=== PATIENT | male | born 1965 | race Caucasian/White ===

== ENCOUNTER 2017-05-18 21:36 | Emergency (ER) | payer MEDICARE, MEDICAID ==
[2017-05-18 21:50] VITALS: BP 152/95
[2017-05-18] MEDS ORDERED: Lidocaine 1% with EPINEPHrine 1:100,000 20 ML MDV INJECT ONE (22:03)
--- NOTE | 2017-05-18 22:37 | EDM.PDOC ---
ED HPI GENERAL MEDICAL PROBLEM - General Chief Complaint: Laceration Stated Complaint: LACERATION TO WRIST Time Seen by Provider: 05/18/17 22:00 Source of Information: Reports: Patient History Limitations: Reports: No Limitations - History of Present Illness INITIAL COMMENTS - FREE TEXT/NARRATIVE: Patient is a 42-year-old male presents ED complaining of a laceration to the right inner aspect of his wrist. Patient was working on a door lock and accidentally cut it on a piece of metal. Bleeding controlled. He has minimal pain. He has no sensorimotor deficits noted. Tetanus status is up-to-date. - Related Data Allergies Allergy/AdvReac Type Severity Reaction Status Date / Time No Known Allergies Allergy Verified 05/18/17 21:51 Home Meds: Home Meds Albuterol [Proair HFA] 2 puff INH Q4HR PRN 08/19/14 [History] Aspirin [Adult Low Dose Aspirin EC] 81 mg PO DAILY 08/19/14 [History] Divalproex Sodium [Depakote ER] 2 tab PO 0900 08/19/14 [History] Divalproex Sodium [Depakote ER] 2.5 tab PO 2100 08/19/14 [History] Multivitamin [Multi-Vitamin Daily] 1 tab PO DAILY 08/19/14 [History] [place]-3 Fatty Acids [Fish Oil] 2 tab PO DAILY 08/19/14 [History] Sertraline [Zoloft] 150 mg PO DAILY 08/19/14 [History] Tamsulosin [Flomax] 0.4 mg PO DAILY 08/19/14 [History] Ubidecarenone [Co Q10] 5 unit PO DAILY 08/19/14 [History] atorvaSTATin [Lipitor] 1 tab PO DAILY 08/19/14 [History] metFORMIN [Glucophage] 1 tab PO BID 08/19/14 [History] traMADol [Ultram] 50 mg PO Q6H PRN #30 tablet 08/28/14 [Rx] Past Medical History Respiratory History: Reports: COPD, Sleep Apnea Other Respiratory History: CPAP at night Musculoskeletal History: Reports: Arthritis Neurological History: Reports: Seizure Psychiatric History: Reports: Anxiety, Depression Endocrine/Metabolic History: Reports: Diabetes, Type I - Past Surgical History HEENT Surgical History: Reports: Tonsillectomy GI Surgical History: Reports: Appendectomy, Colon Neurological Surgical History: Reports: Intracranial Social & Family History - Family History Family Medical History: Noncontributory - Tobacco Use Smoking Status *Q: Current Some Day Smoker Years of Tobacco use: 28 Packs/Tins Daily: 1 Used Tobacco, but Quit: No Second Hand Smoke Exposure: Yes - Caffeine Use Caffeine Use: Reports: Coffee, Soda, Tea - Alcohol Use Days Per Week of Alcohol Use: 0 - Recreational Drug Use Recreational Drug Use: No Drug Use in Last 12 Months: No ED ROS GENERAL - Review of Systems Review Of Systems: ROS reveals no pertinent complaints other than HPI. ED EXAM, SKIN/RASH Exam: See Below Exam Limited By: No Limitations General Appearance: Alert, WD/WN, No Apparent Distress Neck: Normal Inspection, Supple Respiratory/Chest: No Respiratory Distress, No Accessory Muscle Use Cardiovascular: Normal Peripheral Pulses, Regular Rate, Rhythm Peripheral Pulses: 2+: Radial (R) GI/Abdominal: Normal Bowel Sounds Extremities: Other (Approximately 2 cm laceration to the right inner aspect of the wrist. Bleeding is controlled.) Neurological: Alert, Oriented, CN II-XII Intact, Normal Cognition, No Motor/ Sensory Deficits Psychiatric: Normal Affect, Normal Mood Skin: Warm, Dry, Normal Color ED SKIN PROCEDURES - Laceration/Wound Repair Right Wrist Lac/Wound length In cm: 2.5 Appearance: Subcutaneous Distal NVT: Neuro & Vascular Intact, No Tendon Injury Anesthetic Type: Local Local Anesthesia - Lidocaine (Xylocaine): 1% With EPI Local Anesthetic Volume: 5cc Exploration/Debridement/Repair: Wound Explored, in a Bloodless Field, Explored to Base, No Foreign Material Found Closed with: Sutures Suture Size: 4-0 # of Sutures: 6 Suture Type: Prolene, Interrupted, Simple Drain Placement: No Sterile Dressing Applied: Nurse Tetanus Status Addressed: Other (Tetanus status up-to-date per patient) Complications: No Course - Vital Signs Last Recorded V/S: Last Vital Signs Temp 97.7 F 05/18/17 21:44 Pulse 92 05/18/17 21:44 Resp 20 05/18/17 21:44 BP 152/95 H 05/18/17 21:44 Pulse Ox 91 L 05/18/17 21:44 - Orders/Labs/Meds Meds: Medications Discontinued Medications Generic Name Dose Route Start Last Admin Trade Name Freq PRN Reason Stop Dose Admin Lidocaine/Epinephrine 20 ml 05/18/17 22:03 05/18/17 22:26 Xylocaine 1% With Epinephrine 1:100,000 INJECT 05/18/17 22:04 20 ml ONETIME ONE Administration - Re-Assessments/Exams Free Text/Narrative Re-Assessment/Exam: Laceration closed with simple interrupted sutures with dictations. Tetanus status is up-to-date. Will discharge patient home with instructions as documented. Departure - Departure Time of Disposition: 22:35 Disposition: Home, Self-Care 01 Condition: Good Clinical Impression: Laceration of wrist Qualifiers: Encounter type: initial encounter Laterality: right Qualified Code(s): S61.511A - Laceration without foreign body of right wrist, initial encounter - Discharge Information Instructions: Stitches, [place], or Adhesive Wound Closure, [id number], Laceration Care, Adult, [id number] Referrals: Reymundo Acuña MD [Primary Care Provider] - Forms: ED Department Discharge Additional Instructions: Cleanse site twice daily with soap water, pat dry, reapply Triple Antibiotic ointment, and dressing. Utilize Tylenol and ibuprofen as needed for pain. Follow -up with a provider at [facility] in 7 days for for suture removal. Refrain from soaking laceration. Return to ED if you experience increased redness, purulent drainage, increased warmth, fever/chills, or any additional new or worsening symptoms.
== END 2017-05-18 22:40 | disposition home or self-care (01) ==
LOC: JD.ED 21:36
DX: S61.511A Laceration without foreign body of right wrist, initial encounter (principal); J44.9 Chronic obstructive pulmonary disease, unspecified; M19.90 Unspecified osteoarthritis, unspecified site; F41.9 Anxiety disorder, unspecified; F17.210 Nicotine dependence, cigarettes, uncomplicated; F32.9 Major depressive disorder, single episode, unspecified; E10.9 Type 1 diabetes mellitus without complications; Z98.890 Other specified postprocedural states; Z79.82 Long term (current) use of aspirin; Z79.899 Other long term (current) drug therapy; Z79.84 Long term (current) use of oral hypoglycemic drugs; Y28.8XXA Contact with other sharp object, undetermined intent, initial encounter
CPT/HCPCS: 12001; 99282-25

== ENCOUNTER 2022-04-26 13:30 | Emergency (ER) | payer MEDICARE, MEDICAID ==
[2022-04-26 15:08] LABS: CORONAVIRUS COVID-19 NAA POSITIVE (NEGATIVE)
[2022-04-26 16:46] VITALS: BP 117/82; PULSE 77
== END 2022-04-26 16:10 | disposition home or self-care (01) ==
LOC: JD.ED 13:30
DX: U07.1 COVID-19 (principal); J44.9 Chronic obstructive pulmonary disease, unspecified; E78.00 Pure hypercholesterolemia, unspecified; E11.9 Type 2 diabetes mellitus without complications; Z90.49 Acquired absence of other specified parts of digestive tract; Z79.899 Other long term (current) drug therapy; Z79.82 Long term (current) use of aspirin
CPT/HCPCS: 0240U; 99283; 99284

== ENCOUNTER → 2023-04-10 | Day surgery (SDC) | payer MEDICARE, MEDICAID ==
[2023-04-10] MEDS: Brimonidine 0.2% Ophth Soln 5 ML Bottle EYERT SCH ×2 (14:20→15:22)
[2023-04-10] MEDS: Phenylephrine 2.5% Ophth Soln 2 ML Bot EYERT SCH ×3 (14:25→14:45)
[2023-04-10] MEDS: Tropicamide 1% Ophth Soln 15 ML Bottle EYERT SCH ×3 (14:30→14:50)
== END ==
LOC: JD.SDS 14:25
PROVIDERS: ATTEND Ophthalmology
DX: H26.491 Other secondary cataract, right eye (principal); E11.36 Type 2 diabetes mellitus with diabetic cataract; H16.103 Unspecified superficial keratitis, bilateral; H31.092 Other chorioretinal scars, left eye; H53.71 Glare sensitivity; F41.9 Anxiety disorder, unspecified; J45.909 Unspecified asthma, uncomplicated; F32.A Depression, unspecified; E78.00 Pure hypercholesterolemia, unspecified; M19.90 Unspecified osteoarthritis, unspecified site; I10 Essential (primary) hypertension; J44.9 Chronic obstructive pulmonary disease, unspecified; Z96.1 Presence of intraocular lens; Z79.899 Other long term (current) drug therapy; Z90.49 Acquired absence of other specified parts of digestive tract; Z87.891 Personal history of nicotine dependence
CPT/HCPCS: 66821; A9270

== ENCOUNTER 2023-07-24 19:26 | Emergency (ER) | payer MEDICARE, MEDICAID ==
[2023-07-24 19:42] VITALS: BP 134/82; PULSE 82
[2023-07-24 20:34] LABS: BASOPHILS ABSOLUTE AUTO 0.1 K/mm3 (0.0-0.2); BASOPHILS PERCENT AUTO 1.4 % (0.0-1.0); EOSINOPHILS ABSOLUTE AUTO 0.5 K/mm3 (0.0-0.4); EOSINOPHILS PERCENT AUTO 7.5 % (0.0-6.0); HEMATOCRIT 39.3 % (42.0-52.0); HEMOGLOBIN 13.3 gm/dl (14.0-18.0); IMMATURE GRAN ABSOLUTE AUTO 0.03 K/mm3 (0.00-0.05); IMMATURE GRAN PERCENT AUTO 0.5 % (0.0-0.4); LYMPHOCYTES ABSOLUTE AUTO 2.5 K/mm3 (1.0-4.8); LYMPHOCYTES PERCENT AUTO 37.7 % (24.0-44.0); MEAN CORPUSCULAR HEMOGLOBIN 30.8 pg (28.0-32.0); MEAN CORPUSCULAR HGB CONC 33.8 g/dl (32.0-36.0); MEAN PLATELET VOLUME 10.4 fl (9.4-12.4); MONOCYTES ABSOLUTE AUTO 0.8 K/mm3 (0.0-0.8); MONOCYTES PERCENT AUTO 11.8 % (0.0-8.0); NEUTROPHILS ABSOLUTE AUTO 2.7 K/mm3 (1.8-7.7); NEUTROPHILS PERCENT AUTO 41.1 % (41.0-71.0); PLATELET COUNT,PLT 215 K/mm3 (150-400); RED BLOOD CELL COUNT 4.32 M/mm3 (4.52-5.90); WHITE BLOOD CELL COUNT,WBC 6.53 K/mm3 (3.9-11.3)
[2023-07-24 20:49] LABS: APPEARANCE,URINE CLEAR (Clear); BILIRUBIN,URINE NEGATIVE (Negative); COLOR,URINE YELLOW (Yellow); GLUCOSE,URINE 3+ (Negative); KETONES,URINE 1+ (Negative); LEUKOCYTE ESTERASE,URINE NEGATIVE (Negative); NITRITE,URINE NEGATIVE (Negative); OCCULT BLOOD,URINE NEGATIVE (Negative); PROTEIN,URINE NEGATIVE (Negative); UROBILINOGEN,URINE 0.2 (0.2-1.0)
[2023-07-24 21:14] LABS: BARBITURATE SCREEN,URINE NEGATIVE (CUTOFF=200); BENZODIAZEPINES SCREEN,URINE PRESUMPTIVE POSITIVE (CUTOFF=150); BUPRENORPHINE SCREEN,URINE NEGATIVE (CUTOFF=10); METHADONE SCREEN, URINE NEGATIVE (CUT0FF=200); METHAMPHETAMINES SCREEN, URINE NEGATIVE (CUTOFF=500); OXYCODONE SCREEN,URINE NEGATIVE (CUT0FF=100); PROPOXYPHENE SCREEN,URINE NEGATIVE (CUTOFF=300); THC SCREEN,URINE 20 NG/ML NEGATIVE (CUTOFF=50)
[2023-07-24 21:22] LABS: A/G RATIO 1.4 (1-2); ALBUMIN 4.1 g/dl (3.4-5.0); ANION GAP 16.1 (5-15); BILIRUBIN TOTAL 0.3 mg/dL (0.2-1.0); BUN/CREATININE RATIO 28.9 (14-18); CALCIUM 9.8 mg/dL (8.5-10.1); CREATININE 0.9 mg/dL (0.7-1.3); EST CRCL DRUG DOSING (CG) 115.68 mL/min; POTASSIUM,K 4.1 mEq/L (3.5-5.1); TSH 2.291 uIU/mL (0.358-3.74)
[2023-07-24 21:23] LABS: AMPHETAMINES SCREEN, URINE NEGATIVE (CUTOFF=500)
== END 2023-07-24 23:45 | disposition left against medical advice (07) ==
LOC: JD.ED 19:26
DX: F32.A Depression, unspecified (principal); E78.00 Pure hypercholesterolemia, unspecified; J44.9 Chronic obstructive pulmonary disease, unspecified; M19.90 Unspecified osteoarthritis, unspecified site; Z79.84 Long term (current) use of oral hypoglycemic drugs; Z79.899 Other long term (current) drug therapy; Z79.82 Long term (current) use of aspirin
CPT/HCPCS: 36415; 80053; 80179; 80306; 80307; 81003; 84443; 85025; 99284

== ENCOUNTER 2024-04-26 15:01 | Emergency (ER) | payer MEDICARE, MEDICAID ==
[2024-04-26 17:44] VITALS: BP 132/87; PULSE 86
== END 2024-04-26 17:00 | disposition home or self-care (01) ==
LOC: JD.ED 15:01
DX: M79.604 Pain in right leg (principal); E78.00 Pure hypercholesterolemia, unspecified; J44.89 Other specified chronic obstructive pulmonary disease; E11.9 Type 2 diabetes mellitus without complications; Z79.82 Long term (current) use of aspirin; Z79.899 Other long term (current) drug therapy
CPT/HCPCS: 73552-26-RT; 73552-RT; 99283